=== PATIENT | female | born 1965 | race African-American/Black ===

== ENCOUNTER 2020-05-19 22:43 | Emergency (ER) | payer BC, SELFPAY ==
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
[2020-05-19 22:47] VITALS: BP 158/77; BP 170/100; PULSE 105; PULSE 82; RESP 16; TEMP 36.9; O2SAT 100; O2SAT 98; BMI 35.9
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
[2020-05-20] VITALS: RESP 18
== END 2020-05-20 00:39 | disposition home or self-care (01) ==
PROVIDERS: Emergency Provider Emergency Medicine
DX: S01.01XA Laceration without foreign body of scalp, initial encounter (principal); S00.03XA Contusion of scalp, initial encounter; Y00.XXXA Assault by blunt object, initial encounter; F17.200 Nicotine dependence, unspecified, uncomplicated; Y93.9 Activity, unspecified; Y92.009 Unspecified place in unspecified non-institutional (private) residence as the place of occurrence of the external cause; Y99.9 Unspecified external cause status
CPT/HCPCS: 12001; 70250; 99284